=== PATIENT | female | born 1965 | race Caucasian/White ===

== ENCOUNTER 2024-06-09 14:49 | Emergency (ER) | payer OTHER ==
[2024-06-09 14:56] VITALS: RESP 18
--- NOTE | 2024-06-09 15:06 | ED ---
Back Pain HPI - General Chief Complaint: Back Pain/Injury Stated Complaint: [facility] back Injury Time Seen by Provider: 06/09/24 15:04 Source: patient, RN notes reviewed Limitations: no limitations - History of Present Illness Initial Comments: 58 year old female presenting to the ER with a chief complaint of back pain. Patient states she was working yesterday at [employer]. She states she bent down with her knees and upon standing up and twisting to place a box on a shelf she felt a "pull" sensation in her left back. She states since then she has been having extreme pain to that area. Pain does increase with movement and touch. She has tried [id number] Tylenol without relief. She denies any bowel or bladder incontinence, saddle paresthesias, fevers. No other injuries or complaints. - Related Data Previous Rx's Medication Instructions Recorded Famotidine [Pepcid] 20 mg PO BID #14 tablet 02/08/15 predniSONE 50 mg PO DAILY #5 tab 02/08/15 Lidocaine 4% Patch 1 patch TOPICAL DAILY #30 patch 06/09/24 Allergies Allergy/AdvReac Type Severity Reaction Status Date / Time clarithromycin [From Biaxin] Allergy Unknown Verified 06/09/24 14:56 Review of Systems ROS Statement: Those systems with pertinent positive or pertinent negative responses have been documented in the HPI. ROS Other: All systems not noted in ROS Statement are negative. Past Medical History Additional Past Medical History / Comment(s): BACK PAIN History of Any Multi-Drug Resistant Organisms: None Reported Past Surgical History: No Surgical Hx Reported Past Psychological History: No Psychological Hx Reported Smoking Status: Never smoker Past Alcohol Use History: None Reported Past Drug Use History: None Reported General Exam Limitations: no limitations General appearance: alert, in no apparent distress Respiratory exam: Present: normal lung sounds bilaterally. Absent: respiratory distress, wheezes, rales, rhonchi, stridor Cardiovascular Exam: Present: regular rate, normal rhythm, normal heart sounds. Absent: systolic murmur, diastolic murmur, rubs, gallop, clicks Back exam: Present: normal inspection, full ROM, tenderness (Left flank/left posterior ribs. There is no overlying skin changes. No paradoxical chest wall motions.) Neurological exam: Present: alert, oriented X3, CN II-XII intact Skin exam: Present: warm, dry, intact, normal color. Absent: rash Course Vital Signs 06/09/24 06/09/24 14:54 15:59 Temperature 98.3 F 98.1 F Pulse Rate 105 H 90 Respiratory 18 18 Rate Blood Pressure 125/87 128/79 O2 Sat by Pulse 99 99 Oximetry Medical Decision Making - Medical Decision Making Was pt. sent in by a medical professional or institution (, [facility], [facility], urgent care, hospital, or halfway...) When possible be specific @ -No Did you speak to anyone other than the patient for history (EMS, parent, family, police, friend...)? What history was obtained from this source @ -No Did you review nursing and triage notes (agree or disagree)? Why? @ -I reviewed and agree with nursing and triage notes Were old charts reviewed (outside hosp., previous admission, EMS record, old EKG, old radiological studies, urgent care reports/EKG's, halfway records)? Report findings @ -No old charts were reviewed Differential Diagnosis (chest pain, altered mental status, abdominal pain women, abdominal pain men, vaginal bleeding, weakness, fever, dyspnea, syncope, headache, dizziness, GI bleed, back pain, seizure, CVA, palpatations, mental health, musculoskeletal)? @ -Differential Back Pain:Strain, zoster, cauda equina syndrome, epidural abscess, vertebral osteomyelitis, discitis, fracture, subluxation, disc herniation, DJD, spinal stenosis, dissection, AAA, pancreatitis, peptic ulcer disease, pyelonephritis, kidney stone, this is not meant to be an all-inclusive list. EKG interpreted by me (3pts min.). @ -None done X-rays interpreted by me (1pt min.). @ -Lumbar spine x-rays interpreted me negative for acute osseous process. Left ribs x-ray negative for acute rib fractures. CT interpreted by me (1pt min.). @ -None done U/S interpreted by me (1pt. min.). @ -None done What testing was considered but not performed or refused? (CT, X-rays, U/S, labs)? Why? @ -None What meds were considered but not given or refused? Why? @ -None Did you discuss the management of the patient with other professionals (professionals i.e. , [facility], [facility], lab, RT, psych nurse, social sciences professor, lottery sales clerk, teacher, child support officer, bilingual case manager)? Give summary @ -No Was smoking cessation discussed for >3mins.? @ -No Was critical care preformed (if so, how long)? @ -No Were there social determinants of health that impacted care today? How? (Homelessness, low income, unemployed, alcoholism, drug addiction, transportation, low edu. Level, literacy, decrease access to med. care, fpc, rehab)? @ -No Was there de-escalation of care discussed even if they declined (Discuss DNR or withdrawal of care, Hospice)? DNR status @ -No What co-morbidities impacted this encounter? (DM, HTN, Smoking, COPD, CAD, Cancer, CVA, ARF, Chemo, Hep., AIDS, mental health diagnosis, sleep apnea, morbid obesity)? @ -None Was patient admitted / discharged? Hospital course, mention meds given and route, prescriptions, significant lab abnormalities, going to OR and other pertinent info. @ -[Discharged. 58-year-old female presenting to the ER with a chief complaint of back pain after lifting a heavy box. History and physical exam completed. Vital stable. Patient in no signs of acute distress. Patient is tender to left posterior ribs and flank. Pain does not radiate. No overlying skin changes. Patient has full range of motion. No red flag back pain symptoms indicative cauda equina syndrome. Lung sounds were throughout. X-rays obtained negative for acute process. Patient refused muscle relaxers. Patient given lidocaine patch and IM Toradol for pain control in the ER, with improvement. Upon reevaluation, patient resting comfortably in exam room no signs of acute distress. Results discussed with patient, all questions answered. Pain believed to be musculoskeletal in nature. Lidocaine patches prescribed. Advised ghan-reb-svsknga ibuprofen and Tylenol for pain control outpatient. Strict return parameters discussed. Patient discharged in stable condition with follow-up to PCP. Patient verbally expressed understanding and agreement with care plan. Case discussed with ED attending, Dr. Verma. Undiagnosed new problem with uncertain prognosis? @ -No Drug Therapy requiring intensive monitoring for toxicity (Heparin, Nitro, Insulin, Cardizem)? @ -No Were any procedures done? @ -No Diagnosis/symptom? @ -Atraumatic back pain Acute, or Chronic, or Acute on Chronic? @ -Acute Uncomplicated (without systemic symptoms) or Complicated (systemic symptoms)? @ -Uncomplicated Side effects of treatment? @ -No Exacerbation, Progression, or Severe Exacerbation? @ -No Poses a threat to life or bodily function? How? (Chest pain, [place], [place], pneumonia, PE, COPD, DKA, ARF, appy, cholecystitis, CVA, Diverticulitis, Homicidal, Suicidal, threat to staff... and all critical care pts) @ -No - Radiology Data Radiology results: report reviewed, image reviewed Disposition Clinical Impression: Back pain Disposition: HOME SELF-CARE Condition: Stable Instructions (If sedation given, give patient instructions): Acute Low Back P ain (ED) Additional Instructions: Recommend, stretching, ibuprofen, Tylenol and massage. You may wear lidocaine patches daily for 12 hours then remove for 12 hours. Follow-up with PCP. Return to the ER for any new or worsening concerns. Prescriptions: Lidocaine 4% Patch 1 patch TOPICAL DAILY #30 patch Is patient prescribed a controlled substance at d/c from ED?: No Referrals: None,Stated [Primary Care Provider] - 1-2 days Forms: Area PCPs Time of Disposition: 15:48
[2024-06-09] MEDS: KETOROLAC 15 MG/ML 1 ML VIAL IM STA (15:15)
[2024-06-09] MEDS: LIDOCAINE 4% PATCH TOPICAL ONE (15:18)
--- NOTE | 2024-06-09 15:23 | XR ---
EXAMINATION TYPE: XR lumbar spine 2 or 3V DATE OF EXAM: 06/09/2024 3:14 PM COMPARISON: 11/27/2013 CLINICAL INDICATION: Female, 58 years old with history of pain after lifting; [facility] TECHNIQUE: XR lumbar spine 2 or 3V - Frontal, lateral and coned in L5-S1 lateral views of the spine. FINDINGS: No evidence of any acute osseous pathology. No evidence of loss of vertebral body height i s seen. There is scoliosis alignment of the lumbar vertebral bodies leftward shift apex left L2.. Sca ttered disc space narrowing. Multilevel marginal osteophyte formation throughout the visualized spine . There is facet joint arthropathy throughout the spine. Scattered at least mild neural foraminal micheline nosis. IMPRESSION: 1. No acute fracture. 2. Moderate multilevel disc degeneration with scoliosis. [facility], , 06/09/2024 3:21 PM
--- NOTE | 2024-06-09 15:24 | XR ---
EXAMINATION TYPE: XR ribs LT DATE OF EXAM: 06/09/2024 3:14 PM COMPARISON: None CLINICAL INDICATION: Female, 58 years old with history of pain after lifting; [facility] TECHNIQUE: XR ribs LT; Frontal and oblique views of the ribs with frontal chest radiograph. FINDINGS: The ribs have a normal appearance. No evidence of fracture. Overall, the lungs are clear. The cardiac silhouette is normal in size. The remaining osseous structures are intact. IMPRESSION: No acute osseous pathology. [facility], , 06/09/2024 3:22 PM
[2024-06-09 16:02] VITALS: BP 128/79; PULSE 90; TEMP 98.1
== END 2024-06-09 16:45 | disposition home or self-care (01) ==
LOC: EC 14:49
DX: M54.9 Dorsalgia, unspecified (principal); Z88.1 Allergy status to other antibiotic agents
CPT/HCPCS: 72100; 71100; 99283; 96372; J1885